=== PATIENT | female | born 1970 | race Two or more races ===

== ENCOUNTER 2018-12-11 19:42 | Emergency (ER) | payer OTHER ==
--- NOTE | 2018-12-11 20:27 | ER Document Report ---
ED Medical Screen (RME) - General Chief Complaint: Shoulder Pain Stated Complaint: SHOULDER PAIN Time Seen by Provider: 12/11/18 20:06 Mode of Arrival: Ambulatory Information source: Patient Notes: 48-year-old female presents to ED for complaint of right shoulder pain off and on for the last week. She states that she went to the chiropractor with no relief. She states she has not had any injury she has not done anything to make her pain in her shoulder. She also has high blood pressure with a pulse of 112. She states that the pain gets so bad that she gets dizzy at times. She states she has chest pain at times but none at this moment. She states at times it makes her right arm go numb. I have put in orders for blood work, chest x-ray, EKG and monitoring until she is ruled out for cardiac cause. Patient is alert oriented respirations regular and unlabored lungs are clear to auscultation. I have greeted and performed a rapid initial assessment of this patient. A comprehensive ED assessment and evaluation of the patient, analysis of test results and completion of medical decision making process will be conducted by an additional ED providers. TRAVEL OUTSIDE OF THE [place] IN LAST 30 DAYS: No - Related Data Allergies/Adverse Reactions: No Known Allergies Allergy (Unverified 12/11/18 19:46) Past Medical History Renal/ Medical History: Denies: Hx Peritoneal Dialysis Physical Exam - Vital signs Vitals: Temp Pulse Resp BP Pulse Ox 99.2 F 102 H 20 190/106 H 99 12/11/18 19:46 12/11/18 19:46 12/11/18 19:46 12/11/18 19:46 12/11/18 19:46 Course - Vital Signs Vital signs: Temp Pulse Resp BP Pulse Ox 99.2 F 102 H 20 190/106 H 99 12/11/18 19:46 12/11/18 19:46 12/11/18 19:46 12/11/18 19:46 12/11/18 19:46
[2018-12-11] MEDS ORDERED: IBUPROFEN 800 MG TABLET PO ONE (20:33)
[2018-12-11] MEDS ORDERED: DIAZEPAM INJ 10 MG/2 ML DISP.SYRIN IM ONE (20:33)
--- NOTE | 2018-12-11 20:38 | ER Document Report ---
ED Extremity Problem, Upper - General Chief Complaint: Shoulder Pain Stated Complaint: SHOULDER PAIN Time Seen by Provider: 12/11/18 20:06 Primary Care Provider: DARYA WOODS MD [ACTIVE STAFF] - Follow up in 1 week ZULLY PATTERSON MD [ACTIVE STAFF] - Follow up in 1 week Mode of Arrival: Ambulatory Notes: Patient is a 48 year old female that comes to the Emergency Department for chief complaint of right shoulder pain. She states pain is in the top of the shoulder, the right upper back, and up into the side of her neck at times. 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 She states occasionally she will get a headache from it but denies headache now. She states that she went to a chiropractor and she felt better afterwards but then the pain flared back up again today, she could not get comfortable, so she came in for evaluation. She states that the pain will occasionally shoot down the arm. Pain is worse with movement, specifically when she raises her arm up over her head or turns her head. She denies pain in her chest, shortness of breath, dizziness, numbness (this is based on my evaluation, this is slightly different from triage note but I did clarify with the patient). Patient states she has been told that in the past she has had high blood pressure but this is usually when she is "in pain or anxious". She is not medicated for this at home. She is a former smoker, denies recreational drugs or alcohol. Only past medical history reported otherwise with breast augmentation. TRAVEL OUTSIDE OF THE [place] IN LAST 30 DAYS: No - Related Data Allergies/Adverse Reactions: No Known Allergies Allergy (Unverified 12/11/18 19:46) Past Medical History - General Information source: Patient - Social History Smoking Status: Never Smoker Frequency of alcohol use: None Drug Abuse: None Lives with: Family Family History: Reviewed & Not Pertinent Patient has suicidal ideation: No Patient has homicidal ideation: No - Past Medical History Cardiac Medical History: Reports: Hx Hypertension Renal/ Medical History: Denies: Hx Peritoneal Dialysis - Immunizations Immunizations up to date: Yes Hx Diphtheria, Pertussis, Tetanus Vaccination: Yes Review of Systems - Review of Systems Constitutional: No symptoms reported EENT: No symptoms reported Cardiovascular: No symptoms reported Respiratory: No symptoms reported Gastrointestinal: No symptoms reported Genitourinary: No symptoms reported Female Genitourinary: No symptoms reported Musculoskeletal: See HPI Skin: No symptoms reported Hematologic/Lymphatic: No symptoms reported Neurological/Psychological: No symptoms reported Physical Exam - Vital signs Vitals: Temp Pulse Resp BP Pulse Ox 99.2 F 102 H 20 190/106 H 99 12/11/18 19:46 12/11/18 19:46 12/11/18 19:46 12/11/18 19:46 12/11/18 19:46 - Notes Notes: GENERAL: Alert, interacts well. No acute distress. HEAD: Normocephalic, atraumatic. EYES: Pupils equal, round, and reactive to light. Extraocular movements intact. ENT: Oral mucosa moist, tongue midline. Oropharynx unremarkable. Airway patent. Nares patent, no nasal septal hematoma, TM's intact. NECK: Full range of motion. Supple. Trachea midline. LUNGS: Clear to auscultation bilaterally, no wheezes, rales, or rhonchi. No respiratory distress. HEART: Regular rate and rhythm. No murmur ABDOMEN: Soft, non-tender. Non-distended. Bowel sounds present in all 4 quadrants. GENITOURINARY: Deferred EXTREMITIES: Moves all 4 extremities spontaneously. No edema, normal radial and dorsalis pedis pulses bilaterally. No cyanosis. There is pain with range of motion of the right shoulder especially when raising up over the head, pain with palpation over the supraspinatus musculature, right paracervical muscular mildly, and right trapezius musculature. Normal upper extremity exam otherwise. BACK: no cervical, thoracic, lumbar midline tenderness. No saddle anesthesia, normal distal neurovascular exam. NEUROLOGICAL: Alert and oriented x3. Normal speech. [cranial nerves II through XII grossly intact]. PSYCH: Normal affect, normal mood. SKIN: Warm, dry, normal turgor. No rashes or lesions noted. Course - Re-evaluation Re-evalutation: On my evaluation patient states that she "just came to get something for the shoulder muscles". She declines the cardiac workup from triage. Patient does have reproducible pain in her right paracervical, right trapezius, and supraspinatus muscles on evaluation. Pain is worse with range of motion, sp ecifically raising the right arm up over the head. Appears to be musculoskeletal in nature. Cardiac workup canceled as a result, medicating now, will reevaluate. On reevaluation patient states her symptoms have completely resolved, she states she feels great and wants to go home. Tachycardia resolved. Patient still significantly hypertensive. After discussion she states that she has had hyp ertension on multiple re-evaluations, she states she was previously on blood pressure medication, she believes hydrochlorothiazide. As result she is provided with this, she states she already has primary care she can follow-up with, she will be treated for suspected musculoskeletal symptoms, discussed details, discussed follow-up, discussed return precautions. Patient states satisfaction and agreement. Stable at time of discharge. - Vital Signs Vital signs: Temp Pulse Resp BP Pulse Ox 99.2 F 94 16 192/107 H 100 12/11/18 19:46 12/11/18 21:45 12/11/18 21:45 12/11/18 21:45 12/11/18 21:45 Discharge - Discharge Clinical Impression: Uncontrolled hypertension Right shoulder pain Qualifiers: Chronicity: acute Qualified Code(s): M25.511 - Pain in right shoulder Condition: Stable Disposition: HOME, SELF-CARE Additional Instructions: Your examination is consistent with strain of the paracervical (neck) and rotator cuff muscles (at the shoulder). You can apply heat to the area, do gentle stretches, take the anti-inflammatory naproxen as prescribed, and take the flexor muscle relaxer at night. You have been provided with blood pressure medication, I recommend that you keep a log of your blood pressure medication for a week, if your pressures are still consistently high begin the blood pressure medication and follow-up with primary care referral for additional management. Return if you worsen including severe headache, chest pain, difficulty breathing, passing out, or any other concerning or worsening symptoms. Prescriptions: Cyclobenzaprine HCl [Flexeril 5 mg Tablet] 1 - 2 tab PO TID PRN #20 tablet PRN Reason: Hydrochlorothiazide [Hydrodiuril 25 mg Tablet] 25 mg PO QAM #30 tablet Naproxen [Naprosyn 375 Mg Tablet] 375 mg PO BID #14 tablet Referrals: ZULLY PATTERSON MD [ACTIVE STAFF] - Follow up in 1 week DARYA WOODS MD [ACTIVE STAFF] - Follow up in 1 week
[2018-12-11 21:48] VITALS: BP 192/107
== END 2018-12-11 22:07 | disposition home or self-care (01) ==
LOC: ER 19:42
DX: I10 Essential (primary) hypertension (principal); M25.511 Pain in right shoulder; M54.6 Pain in thoracic spine; M54.2 Cervicalgia
CPT/HCPCS: 99283; 96372; J3360

== ENCOUNTER → 2019-05-26 | Outpatient (CLI) | payer OTHER ==
--- NOTE | 2019-05-26 12:47 | WOMENS IMAGING REPORT ---
EXAM DESCRIPTION: 3D SCREENING MAMMO BILAT COMPLETED DATE/TIME: 05/26/2019 8:38 am REASON FOR STUDY: Z12.31 SCREENING MAMMO Z12.31 ENCNTR SCREEN MAMMOGRAM FOR MALIGNANT NEOPLASM OF B RE COMPARISON: No previous for comparison EXAM PARAMETERS: Standard craniocaudal and mediolateral oblique views of each breast recorded using digital acquisition and breast tomosynthesis. Additional "push-back craniocaudal and mediolateral ob lique images acquired. Read with the assistance of CAD. .FORMERLY [facility] - [employer] Version 9.2 LIMITATIONS: None. FINDINGS: IMPLANTS: Bilateral rectal pectoral saline implants are present, the right is deflated. Findings present which are benign by mammographic criteria. No suspicious masses, calcifications or a rchitectural distortion. Benign mammographic findings may include one or more of the following: Smooth masses, popcorn/rim/co arse calcifications, asymmetries, post-procedure changes, and lesions with long-standing stability. IMPRESSION: BENIGN MAMMOGRAPHIC FINDINGS. BIRADS 2 BREAST DENSITY: b. There are scattered areas of fibroglandular density. BIRAD: ASSESSMENT: 2 BENIGN FINDING(S) RECOMMENDATION: ROUTINE SCREENING COMMENT: The patient has been notified of the results by letter per MQSA requirements. Additional no tification policies are in place for contacting patient with suspicious or incomplete findings. Quality ID #[id number]: The [employer] recommends an annual screening mammogram for women aged 40 years or over. This facility utilizes a reminder system to ensure that all patients receive reminder letters, and/or direct phone calls for appointments. This includes reminders for routine scr eening mammograms, diagnostic mammograms, or other Breast Imaging Interventions when appropriate. Th is patient will be placed in the appropriate reminder system. TECHNICAL DOCUMENTATION: FINDING NUMBER: (1) ASSESSMENT: (1) JOB ID: [id number] [employer]- All Rights Reserved Reading location - IP/workstation name: [email or web address]
== END ==
LOC: WI 07:45
PROVIDERS: ATTEND Internal Medicine Geriatric Medicine
DX: Z12.31 Encounter for screening mammogram for malignant neoplasm of breast (principal); Z98.82 Breast implant status
CPT/HCPCS: 77063; 77067